=== PATIENT | female | born 1940 | race Caucasian/White ===

== ENCOUNTER 2017-10-09 19:14 | Inpatient (IN) | payer MEDICARE, OTHER ==
--- NOTE | 2017-10-09 20:14 | ED Physician Chart ---
ED Chief Complaint/HPI - Patient Information Date Seen:: 10/09/17 Time Seen:: 20:13 Chief Complaint:: Agitation History of Present Illness:: 77 yo female was brought from [facility] to ER for evaluation of increased agitation. Allergies:: Allergies Allergy/AdvReac Type Severity Reaction Status Date / Time No Known Allergies Allergy Verified 10/09/17 19:54 Vitals:: Vital Signs - 8 hr 10/09/17 19:55 Temp 98.7 F HR 87 RR 18 BP 120/72 O2 Sat % 98 ED Review of Systems - Review of Systems General/Constitutional: No fever Skin: No rash Head: No headache Eyes: No pain ENT: No nasal drainage Neck: No neck pain Cardio Vascular: No chest pain Pulmonary: No SOB GI: No nausea, No vomiting Musculoskeletal: No bone or joint pain Psychiatric: Prior psych history Neurological: No focal symptoms ED Past Medical History - Past Medical History Past Medical History: Arthritis, Dementia (Alzheimer), Other (osteoporosis, PVD , left radius fracture) Social History: Non Smoker, No Alcohol, No Drug Use Psychiatricy History: Other (Anxiety) Family Medical History - Family Member Mother History Unknown: Yes ED Physical Exam - Physical Examination General/Constitutional: Awake Head: Atraumatic Eyes: PERRL Skin: No skin lesions ENMT: Nasal exam nl Neck: No nuchal rigidity Respiratory: No Wheeze/Rhonchi/Rales Cardio Vascular: RRR, No murmur, gallop, rubs, NL S1 S2 GI: No tenderness/rebounding/guarding Extremities: normal strength in all extremities Neuro/Psych: No focal deficits ED Labs/Radiology/EKG Results - Lab Results Results: Laboratory Last Values WBC 8.1 Th/cmm (4.8-10.8) 10/09/17 20:15 RBC 4.46 Mil/cmm (3.80-5.20) 10/09/17 20:15 Hgb 12.7 gm/dL (12-16) 10/09/17 20:15 Hct 37.4 % (41.0-60) L 10/09/17 20:15 MCV 83.8 fl (81-100) 10/09/17 20:15 MCH 28.5 pg (27.0-31.0) 10/09/17 20:15 MCHC Differential 34.0 pg (28.0-36.0) 10/09/17 20:15 RDW 13.5 % (11.5-20.0) 10/09/17 20:15 Plt Count 272 Th/cmm (150-400) 10/09/17 20:15 MPV 6.9 fl 10/09/17 20:15 Neutrophils % 66.4 % (40.0-80.0) 10/09/17 20:15 Lymphocytes % 24.9 % (20.0-50.0) 10/09/17 20:15 Monocytes % 5.8 % (2.0-10.0) 10/09/17 20:15 Eosinophils % 2.7 % (0.0-5.0) 10/09/17 20:15 Basophils % 0.2 % (0.0-2.0) 10/09/17 20:15 Sodium 137 mEq/L (136-145) 10/09/17 20:15 Potassium 3.8 mEq/L (3.5-5.1) 10/09/17 20:15 Chloride 104 mEq/L (98-107) 10/09/17 20:15 Carbon Dioxide 25.7 mEq/L (21.0-31.0) 10/09/17 20:15 Anion Gap 11.1 (7.0-16.0) 10/09/17 20:15 BUN 25 mg/dL (7-25) 10/09/17 20:15 Creatinine 0.8 mg/dL (0.6-1.2) 10/09/17 20:15 Est GFR ( Amer) TNP 10/09/17 20:15 Est GFR (Non-Af Amer) TNP 10/09/17 20:15 BUN/Creatinine Ratio 31.3 10/09/17 20:15 Glucose 139 mg/dL (70-105) H 10/09/17 20:15 Calcium 9.5 mg/dL (8.6-10.3) 10/09/17 20:15 Total Bilirubin 0.1 mg/dL (0.3-1.0) L 10/09/17 20:15 AST 12 U/L (13-39) L 10/09/17 20:15 ALT 14 U/L (7-52) 10/09/17 20:15 Alkaline Phosphatase 63 U/L (34-104) 10/09/17 20:15 Troponin I 0.01 ng/mL (0.01-0.05) 10/09/17 20:15 Total Protein 6.3 gm/dL (6.0-8.3) 10/09/17 20:15 Albumin 3.8 gm/dL (3.7-5.3) 10/09/17 20:15 Globulin 2.5 gm/dL 10/09/17 20:15 Albumin/Globulin Ratio 1.5 (1.0-1.8) 10/09/17 20:15 TSH 1.68 uIU/ml (0.34-5.60) 10/09/17 20:15 - Radiology Results Results: CXR: no acute abnormality - EKG Interpretations EKG Time:: 20:17 Rate & Rhythm: 78 bpm, sinus rhythm [place]: normal p axis Intervals: CO 140 Comments:: nonspecific ST, T wave changes ED Assessment - Assessment General Assessment: Peripheral vascular disease Osteoarthritis Osteoporosis Alzheimer's disease Anxiety Psychosis Assessment/Comments:: CBC, CMP, Trop I, TSH EKG, CXR Admit to geropsych unit ED Septic Shock - . Is Septic Shock (SBP<90, OR Lactate>4 mmol\L) present?: No - <6hrs of presentation: Vital Signs: Vital Signs - 8 hr 10/09/17 19:55 Temp 98.7 F HR 87 RR 18 BP 120/72 O2 Sat % 98 ED Reassessment (Disposition) - Reassessment Reassessment Condition:: Unchanged - Patient Disposition Discharge/Transfer:: [facility] w/in this hosp Admitting Medical Physician:: Bharat Gonzalez Admitting Psych Physician:: Phillip Gaytan
[2017-10-09 20:23] LABS: % BASOPHILS 0.2 % (0.0-2.0); % EOSINOPHILS 2.7 % (0.0-5.0); % LYMPHOCYTES 24.9 % (20.0-50.0); % MONOCYTES 5.8 % (2.0-10.0); % NEUTROPHILS 66.4 % (40.0-80.0); EOSINOPHILE ABSOLUTE 0.2 Th/cmm (0.1-0.4); HEMATOCRIT 37.4 % (41.0-60); HEMOGLOBIN 12.7 gm/dL (12-16); MEAN CELL VOLUME 83.8 fl (81-100); MEAN CORPUSCULAR HEMOGLOBIN 28.5 pg (27.0-31.0); MEAN PLATELET VOLUME 6.9 fl; MONOCYTE ABSOLUTE 0.5 Th/cmm (0.3-1.0); NEUTROPHILE ABSOLUTE 5.4 Th/cmm (1.8-8.0); PLATELET COUNT 272 Th/cmm (150-400); RED BLOOD COUNT 4.46 Mil/cmm (3.80-5.20); RED CELL DISTRIBUTION WIDTH 13.5 % (11.5-20.0); WHITE BLOOD COUNT 8.1 Th/cmm (4.8-10.8)
[2017-10-09 20:57] LABS: ALB/GLOB RATIO 1.5 (1.0-1.8); ALBUMIN 3.8 gm/dL (3.7-5.3); ALKALINE PHOSPHATASE 63 U/L (34-104); ANION GAP 11.1 (7.0-16.0); BILIRUBIN,TOTAL 0.1 mg/dL (0.3-1.0); BUN - UREA NITROGEN 25 mg/dL (7-25); CALCIUM SERUM 9.5 mg/dL (8.6-10.3); CARBON DIOXIDE 25.7 mEq/L (21.0-31.0); CHLORIDE 104 mEq/L (98-107); CREATININE - SERUM 0.8 mg/dL (0.6-1.2); GLUCOSE 139 mg/dL (70-105); POTASSIUM SERUM 3.8 mEq/L (3.5-5.1); SGOT 12 U/L (13-39); SGPT/ALT 14 U/L (7-52); SODIUM SERUM 137 mEq/L (136-145); TOTAL PROTEIN,SERUM 6.3 gm/dL (6.0-8.3)
[2017-10-09] MEDS ORDERED: Maalox 30 mL Cup PO PRN (22:44)
[2017-10-10 02:31] VITALS: BP 120/76
[2017-10-10] MEDS ORDERED: Fleet Enema 135 mL RC PRN (07:45)
[2017-10-10] MEDS ORDERED: Magnesium Hydroxide (MOM) 30 mL UDC PO PRN (07:47)
--- NOTE | 2017-10-10 08:00 | Diagnostic Imaging Report ---
Portable chest x-ray History: Shortness of breath Allowing for portable technique the heart size is normal. Atherosclerotic calcification seen within the aortic arch. No focal pulmonary parenchymal processes. No hilar or mediastinal abnormalities. Impression: No acute abnormalities.
--- NOTE | 2017-10-10 08:45 | History and Physical ---
History of Present Illness - HPI Chief Complaint: Psychosis HPI: 77 yo female presents to [facility] ER for increased agitation noted by the nursing staff at the SNF. The patient was noted to have a change in her behavior and was subsequently sent for evaluation. Patient has a previous history of Arthritis, Dementia (Alzheimer), osteoporosis, PVD, and left radius fracture. Initial Labs WBC 8.1 H/H 12.7/37.4 Plat 272K Na 137 K 3.8 Bun/Cr 25/0.8 glu 139 TSH 1.68 AST 12 ALT 14 Alk 63 Patient was subsequently admitted to [facility] for further evaluation and treatment. Vital Signs: Last Vital Signs Temp 98.3 F 10/09/17 22:45 Pulse 78 10/09/17 22:45 Resp 18 10/09/17 22:45 BP 120/76 10/10/17 02:31 Pulse Ox 97 10/09/17 22:45 Past Medical History Cardiovascular: Report: No Pertinent Hx Pulmonary: Report: No Pertinent Hx [employer] SPECIALIST: Report: Dementia (Alzheimer's) GI: Report: No Pertinent Hx Psych: Report: Anxiety, Psychosis Musculoskeletal: Report: Other (OA) Rheumatologic: Report: No pertinent Hx Infectious Disease: Report: No Pertinent Hx Renal/: Report: No Pertinent Hx Endocrine: Report: No Pertinent Hx Dermatology: Report: No Pertinent Hx Other History: PVD - Past Surgical History Past Surgical History: No pertinent Hx Family Medical History - Family Member Mother History Unknown: Yes Social History Smoke: No Alcohol: None Drugs: None Lives: Skilled Nursing - Medications Home Medications: Home Medication Medication Instructions Recorded Type Acetaminophen [Tylenol] 650 mg PO Q6HR PRN 10/09/17 History Calcium Carbonate/Vitamin D3 1 tab PO BID 10/09/17 History [Calcium 500-Vit D3 200 Caplet] Cholecalciferol (Vit D3) [Vitamin 1,000 iu PO DAILY 10/09/17 History D3] Cyanocobalamin (Vitamin B-12) 1 tab PO DAILY 10/09/17 History [Vitamin B-12] Diphenhydramine HCL [Benadryl] 25 mg PO Q6HR PRN 10/09/17 History Fleet Enema 1 bottle RC Q72HR PRN 10/09/17 History Magnesium Hydroxide [Milk of 30 ml PO Q72HR PRN 10/09/17 History Magnesia] Memantine HCl [Namenda] 5 mg PO BID 10/09/17 History Multivitamin with Minerals 1 tab PO DAILY 10/09/17 History [Multivitamins with Minerals] Sennosides [Senna] 8.6 mg PO DAILY 10/09/17 History - Allergies Allergies/Adverse Reactions: Allergies Allergy/AdvReac Type Severity Reaction Status Date / Time No Known Allergies Allergy Verified 10/09/17 19:54 Review of Systems - Review of Systems Constitutional: Report: No Significant Eyes: Report: No Significant ENT: Report: No Significant Respiratory: Report: No Significant Cardiovascular: Report: No Significant Gastrointestinal: Report: No Significant Genitourinary: Report: No Significant Musculoskeletal: Report: No Significant Skin: Report: No Significant Neurological: Report: No Significant Physical Exam - Physical Exam HEENT: Report: Ears Nose Throat within normal limits, Pharnyx within normal limits Neck: Report: Within normal limits Cardiovascular Systems: Report: +s1/s2 noted, Regular, Rate and Rhythm Respiratory: Report: Breath Sounds are within normal limits, Clear to Auscultation of lung pulido Abdomen: Report: Non-tender to palpation Back: Report: Inspection of back is within normal limits. Extremities: Report: Non-tender to palpation. Skin: Report: Color of skin is within normal limits, Warm Neuro/Psych: Report: Other (Awake, Alert, but confused) - Lab Results All Lab Results last 24 hours: Laboratory Results - last 24 hr 10/09/17 10/09/17 10/09/17 20:15 20:15 20:15 WBC 8.1 RBC 4.46 Hgb 12.7 Hct 37.4 L MCV 83.8 MCH 28.5 MCHC Differential 34.0 RDW 13.5 Plt Count 272 MPV 6.9 Neutrophils % 66.4 Lymphocytes % 24.9 Monocytes % 5.8 Eosinophils % 2.7 Basophils % 0.2 Sodium 137 Potassium 3.8 Chloride 104 Carbon Dioxide 25.7 Anion Gap 11.1 BUN 25 Creatinine 0.8 Est GFR ( Amer) TNP Est GFR (Non-Af Amer) TNP BUN/Creatinine Ratio 31.3 Glucose 139 H Calcium 9.5 Total Bilirubin 0.1 L AST 12 L ALT 14 Alkaline Phosphatase 63 Troponin I Total Protein 6.3 Albumin 3.8 Globulin 2.5 Albumin/Globulin Ratio 1.5 TSH 1.68 10/09/17 20:15 WBC RBC Hgb Hct MCV MCH MCHC Differential RDW Plt Count MPV Neutrophils % Lymphocytes % Monocytes % Eosinophils % Basophils % Sodium Potassium Chloride Carbon Dioxide Anion Gap BUN Creatinine Est GFR ( Amer) Est GFR (Non-Af Amer) BUN/Creatinine Ratio Glucose Calcium Total Bilirubin AST ALT Alkaline Phosphatase Troponin I 0.01 Total Protein Albumin Globulin Albumin/Globulin Ratio TSH - Assessment Assessment: Psychosis Arthritis Dementia (Alzheimer) osteoporosis PVD left radius fracture - Plan Plan: admit to [facility]
[2017-10-10] MEDS: Multivitamin w/ Minerals Tab PO SCH (09:13)
[2017-10-10] MEDS: Calcium Carb/Vit D 500 mg/200 U Tab PO SCH ×2 (09:13→16:39)
--- NOTE | 2017-10-11 00:08 | Psychiatric Evaluation ---
DATE OF SERVICE: 10/10/2017 JUSTIFICATION FOR HOSPITALIZATION: Agitation and aggressive behavior at [facility]. HISTORY OF PRESENT ILLNESS: A 77-year-old female, brought in from [facility], agitated, combative, unable to be cared for at a lower level of care. The patient is AO to name only, mumbling something difficult to understand. Not answering questions about sleep or appetite or mood. She is generally confused, mumbling something. PAST PSYCHIATRIC HISTORY: Dementia. It seems advanced. FAMILY HISTORY: Noncontributory. SOCIAL HISTORY: The patient is coming from [facility]. Family support system is unclear. MEDICATIONS: Noted. MENTAL STATUS EXAMINATION: Stated age. Fair eye contact. Awake, alert, poorly oriented. Mood, not answering. Affect flat. Thought processes were confused. No SI, no HI. No overt psychotic symptoms. No suicidal gestures. Insight and judgment diminished. PROVISIONAL DIAGNOSES: Dementia, dementia with behaviors, psychosis, unspecified. MEDICAL: Please see full H and P. ESTIMATED LENGTH OF STAY: 5-7 days. ASSESSMENT: The patient requiring hospitalization, agitated, combative, unable to be cared for at a lower level of care. PLAN: We will continue to monitor, titrate and adjust medications. Given ongoing symptoms, she is not safe for discharge. [facility]# [id number]
--- NOTE | 2017-10-11 08:21 | General Progress Note ---
Subjective - Review of Systems Service Date: 10/11/17 Subjective: Awake, alert no acute distress VS T 96.8 P 73 BP 121/76 R 20 Objective - Results Result Diagrams: 10/09/17 20:15 10/09/17 20:15 Recent Labs: Laboratory Last Values WBC 8.1 Th/cmm (4.8-10.8) 10/09/17 20:15 RBC 4.46 Mil/cmm (3.80-5.20) 10/09/17 20:15 Hgb 12.7 gm/dL (12-16) 10/09/17 20:15 Hct 37.4 % (41.0-60) L 10/09/17 20:15 MCV 83.8 fl (81-100) 10/09/17 20:15 MCH 28.5 pg (27.0-31.0) 10/09/17 20:15 MCHC Differential 34.0 pg (28.0-36.0) 10/09/17 20:15 RDW 13.5 % (11.5-20.0) 10/09/17 20:15 Plt Count 272 Th/cmm (150-400) 10/09/17 20:15 MPV 6.9 fl 10/09/17 20:15 Neutrophils % 66.4 % (40.0-80.0) 10/09/17 20:15 Lymphocytes % 24.9 % (20.0-50.0) 10/09/17 20:15 Monocytes % 5.8 % (2.0-10.0) 10/09/17 20:15 Eosinophils % 2.7 % (0.0-5.0) 10/09/17 20:15 Basophils % 0.2 % (0.0-2.0) 10/09/17 20:15 Sodium 137 mEq/L (136-145) 10/09/17 20:15 Potassium 3.8 mEq/L (3.5-5.1) 10/09/17 20:15 Chloride 104 mEq/L (98-107) 10/09/17 20:15 Carbon Dioxide 25.7 mEq/L (21.0-31.0) 10/09/17 20:15 Anion Gap 11.1 (7.0-16.0) 10/09/17 20:15 BUN 25 mg/dL (7-25) 10/09/17 20:15 Creatinine 0.8 mg/dL (0.6-1.2) 10/09/17 20:15 Est GFR ( Amer) TNP 10/09/17 20:15 Est GFR (Non-Af Amer) TNP 10/09/17 20:15 BUN/Creatinine Ratio 31.3 10/09/17 20:15 Glucose 139 mg/dL (70-105) H 10/09/17 20:15 Calcium 9.5 mg/dL (8.6-10.3) 10/09/17 20:15 Total Bilirubin 0.1 mg/dL (0.3-1.0) L 10/09/17 20:15 AST 12 U/L (13-39) L 10/09/17 20:15 ALT 14 U/L (7-52) 10/09/17 20:15 Alkaline Phosphatase 63 U/L (34-104) 10/09/17 20:15 Troponin I 0.01 ng/mL (0.01-0.05) 10/09/17 20:15 Total Protein 6.3 gm/dL (6.0-8.3) 10/09/17 20:15 Albumin 3.8 gm/dL (3.7-5.3) 10/09/17 20:15 Globulin 2.5 gm/dL 10/09/17 20:15 Albumin/Globulin Ratio 1.5 (1.0-1.8) 10/09/17 20:15 TSH 1.68 uIU/ml (0.34-5.60) 10/09/17 20:15 - Physical Exam Vitals and I&O: Vital Signs Temp 98.8 F 10/10/17 16:40 Pulse 73 10/10/17 16:40 Resp 20 10/10/17 16:40 BP 121/76 10/10/17 16:40 Pulse Ox 96 10/10/17 16:40 Active Medications: Current Medications Acetaminophen (Tylenol) 650 mg PO Q4HR PRN PRN Reason: Mild Pain / Temp above 100 Stop: 12/08/17 22:43 Al Hydrox/Mg Hydrox/Simethicone (Maalox) 30 ml PO Q4HR PRN PRN Reason: GI DISTRESS Stop: 12/08/17 22:43 Calcium/Vitamin D (Oscal W/Vitamin D) 1 tab PO BID [facility] Stop: 12/09/17 08:59 Last Admin: 10/10/17 16:39 Dose: 1 tab Cholecalciferol (Vitamin D3) 1,000 iu PO DAILY [facility] Stop: 12/09/17 08:59 Last Admin: 10/10/17 09:13 Dose: 1,000 iu Cyanocobalamin (Vitamin B12) 1,000 mcg PO DAILY [facility] Stop: 12/09/17 08:59 Last Admin: 10/10/17 09:13 Dose: 1,000 mcg Diphenhydramine HCl (Benadryl) 25 mg PO Q6HR PRN PRN Reason: Itching Stop: 12/09/17 07:44 Lorazepam (Ativan) 0.5 mg PO Q4HR PRN; Protocol PRN Reason: Anxiety Stop: 11/08/17 22:43 Magnesium Hydroxide (Milk Of Magnesia) 30 ml PO Q72HR PRN PRN Reason: Constipation Stop: 12/09/17 07:46 Memantine (Namenda) 5 mg PO BID [facility] Stop: 12/09/17 08:59 Last Admin: 10/10/17 16:39 Dose: 5 mg Senna (Senna) 8.6 mg PO DAILY [facility] Stop: 12/09/17 08:59 Last Admin: 10/10/17 09:13 Dose: 8.6 mg Sodium Phosphate (Fleet Enema) 135 ml RC Q72HR PRN PRN Reason: IF MOM INEFFECTIVE Stop: 12/09/17 07:44 Zolpidem Tartrate (Ambien) 5 mg PO HS PRN PRN Reason: Insomnia Stop: 12/08/17 22:43 General: Alert, Oriented x3, No acute distress HEENT: Atraumatic, PERRLA, EOMI Neck: Supple Cardiovascular: Regular rate, Normal S1, Normal S2 Lungs: Clear to auscultation Abdomen: Bowel sounds Extremities: no Clubbing, no Cyanosis, no Edema Neurological: Normal gait Assessment/Plan - Assessment Assessment: Psychosis Arthritis Dementia (Alzheimer) osteoporosis PVD h/o left radius fracture - Plan Plan: admit to [facility]
[2017-10-11] MEDS: Calcium Carb/Vit D 500 mg/200 U Tab PO SCH ×2 (08:55→17:07)
[2017-10-11] MEDS: Multivitamin w/ Minerals Tab PO SCH (08:55)
--- NOTE | 2017-10-11 23:21 | Progress Notes ---
DATE: 10/11/2017 SUBJECTIVE: The patient in the hospital, agitated behaviors, aggressive behaviors, coming in from shelter, combative, unable to be cared for at a lower level of care, very confused on exam, AO to name only, does not know where she is or what is going on. It seems that she has advanced dementia. Slept for about 7-8 hours. Amenable to care. She is fairly calm. ASSESSMENT: The patient is confused, disoriented, highly impulsive, unpredictable, currently on Namenda. We will continue Aricept. Given her ongoing symptoms, she is not safe for discharge. Vitals were reviewed. JOB# [id number]
--- NOTE | 2017-10-12 08:09 | General Progress Note ---
Subjective - Review of Systems Service Date: 10/12/17 Subjective: Awake, alert no acute distress VS T 97.6 P 68 BP 109/73 R 18 Objective - Results Result Diagrams: 10/09/17 20:15 10/09/17 20:15 Recent Labs: Laboratory Last Values WBC 8.1 Th/cmm (4.8-10.8) 10/09/17 20:15 RBC 4.46 Mil/cmm (3.80-5.20) 10/09/17 20:15 Hgb 12.7 gm/dL (12-16) 10/09/17 20:15 Hct 37.4 % (41.0-60) L 10/09/17 20:15 MCV 83.8 fl (81-100) 10/09/17 20:15 MCH 28.5 pg (27.0-31.0) 10/09/17 20:15 MCHC Differential 34.0 pg (28.0-36.0) 10/09/17 20:15 RDW 13.5 % (11.5-20.0) 10/09/17 20:15 Plt Count 272 Th/cmm (150-400) 10/09/17 20:15 MPV 6.9 fl 10/09/17 20:15 Neutrophils % 66.4 % (40.0-80.0) 10/09/17 20:15 Lymphocytes % 24.9 % (20.0-50.0) 10/09/17 20:15 Monocytes % 5.8 % (2.0-10.0) 10/09/17 20:15 Eosinophils % 2.7 % (0.0-5.0) 10/09/17 20:15 Basophils % 0.2 % (0.0-2.0) 10/09/17 20:15 Sodium 137 mEq/L (136-145) 10/09/17 20:15 Potassium 3.8 mEq/L (3.5-5.1) 10/09/17 20:15 Chloride 104 mEq/L (98-107) 10/09/17 20:15 Carbon Dioxide 25.7 mEq/L (21.0-31.0) 10/09/17 20:15 Anion Gap 11.1 (7.0-16.0) 10/09/17 20:15 BUN 25 mg/dL (7-25) 10/09/17 20:15 Creatinine 0.8 mg/dL (0.6-1.2) 10/09/17 20:15 Est GFR ( Amer) TNP 10/09/17 20:15 Est GFR (Non-Af Amer) TNP 10/09/17 20:15 BUN/Creatinine Ratio 31.3 10/09/17 20:15 Glucose 139 mg/dL (70-105) H 10/09/17 20:15 Calcium 9.5 mg/dL (8.6-10.3) 10/09/17 20:15 Total Bilirubin 0.1 mg/dL (0.3-1.0) L 10/09/17 20:15 AST 12 U/L (13-39) L 10/09/17 20:15 ALT 14 U/L (7-52) 10/09/17 20:15 Alkaline Phosphatase 63 U/L (34-104) 10/09/17 20:15 Troponin I 0.01 ng/mL (0.01-0.05) 10/09/17 20:15 Total Protein 6.3 gm/dL (6.0-8.3) 10/09/17 20:15 Albumin 3.8 gm/dL (3.7-5.3) 10/09/17 20:15 Globulin 2.5 gm/dL 10/09/17 20:15 Albumin/Globulin Ratio 1.5 (1.0-1.8) 10/09/17 20:15 TSH 1.68 uIU/ml (0.34-5.60) 10/09/17 20:15 RPR NONREACTIVE (NONREACTIVE) 10/09/17 20:15 - Physical Exam Vitals and I&O: Vital Signs Temp 97.6 F 10/12/17 04:18 Pulse 68 10/12/17 04:18 Resp 18 10/12/17 04:18 BP 109/73 10/12/17 04:18 Pulse Ox 97 10/12/17 04:18 Intake & Output 10/11/17 10/12/17 10/12/17 18:59 06:59 18:59 Intake Total 480 Balance 480 Intake: Oral 480 Other: # Voids 4 2 # Bowel Movements 0 Active Medications: Current Medications Acetaminophen (Tylenol) 650 mg PO Q4HR PRN PRN Reason: Mild Pain / Temp above 100 Stop: 12/08/17 22:43 Al Hydrox/Mg Hydrox/Simethicone (Maalox) 30 ml PO Q4HR PRN PRN Reason: GI DISTRESS Stop: 12/08/17 22:43 Calcium/Vitamin D (Oscal W/Vitamin D) 1 tab PO BID [facility] Stop: 12/09/17 08:59 Last Admin: 10/11/17 17:07 Dose: 1 tab Cholecalciferol (Vitamin D3) 1,000 iu PO DAILY [facility] Stop: 12/09/17 08:59 Last Admin: 10/11/17 08:55 Dose: 1,000 iu Cyanocobalamin (Vitamin B12) 1,000 mcg PO DAILY [facility] Stop: 12/09/17 08:59 Last Admin: 10/11/17 08:55 Dose: 1,000 mcg Diphenhydramine HCl (Benadryl) 25 mg PO Q6HR PRN PRN Reason: Itching Stop: 12/09/17 07:44 Lorazepam (Ativan) 0.5 mg PO Q4HR PRN; Protocol PRN Reason: Anxiety Stop: 11/08/17 22:43 Magnesium Hydroxide (Milk Of Magnesia) 30 ml PO Q72HR PRN PRN Reason: Constipation Stop: 12/09/17 07:46 Memantine (Namenda) 5 mg PO BID [facility] Stop: 12/09/17 08:59 Last Admin: 10/11/17 17:07 Dose: 5 mg Senna (Senna) 8.6 mg PO DAILY [facility] Stop: 12/09/17 08:59 Last Admin: 10/11/17 08:55 Dose: 8.6 mg Sodium Phosphate (Fleet Enema) 135 ml RC Q72HR PRN PRN Reason: IF MOM INEFFECTIVE Stop: 12/09/17 07:44 Zolpidem Tartrate (Ambien) 5 mg PO HS PRN PRN Reason: Insomnia Stop: 12/08/17 22:43 General: Alert, Oriented x3, No acute distress HEENT: Atraumatic, PERRLA, EOMI Neck: Supple Cardiovascular: Regular rate, Normal S1, Normal S2 Lungs: Clear to auscultation Abdomen: Bowel sounds Extremities: no Clubbing, no Cyanosis, no Edema Neurological: Normal gait Assessment/Plan - Assessment Assessment: Psychosis Arthritis Dementia (Alzheimer) osteoporosis PVD h/o left radius fracture - Plan Plan: admit to [facility]
[2017-10-12] MEDS: Calcium Carb/Vit D 500 mg/200 U Tab PO SCH ×2 (09:11→17:09)
[2017-10-12] MEDS: Multivitamin w/ Minerals Tab PO SCH (09:11)
--- NOTE | 2017-10-12 22:46 | Progress Notes ---
DATE: 10/12/2017 SUBJECTIVE: The patient is confused, disoriented, slept fairly well last night, in her room, withdrawn, mumbling, talking to herself, AO to name only, does not know where she is or what is going on, very forgetful. No agitation, no escalation of behaviors, but given her symptoms, she remains highly impulsive also unpredictable. The patient with episodes of striking out at staff and that is why she is here. Medications were noted. ASSESSMENT: The patient remains symptomatic, impulsive, unpredictable. PLAN: We will continue to monitor. Consider the addition of Aricept. JOB# [id number]
--- NOTE | 2017-10-13 05:35 | General Progress Note ---
Subjective - Review of Systems Service Date: 10/13/17 Subjective: Awake, alert no acute distress VS T 97.6 P 72 BP 108/69 R 18 Objective - Results Result Diagrams: 10/09/17 20:15 10/09/17 20:15 Recent Labs: Laboratory Last Values WBC 8.1 Th/cmm (4.8-10.8) 10/09/17 20:15 RBC 4.46 Mil/cmm (3.80-5.20) 10/09/17 20:15 Hgb 12.7 gm/dL (12-16) 10/09/17 20:15 Hct 37.4 % (41.0-60) L 10/09/17 20:15 MCV 83.8 fl (81-100) 10/09/17 20:15 MCH 28.5 pg (27.0-31.0) 10/09/17 20:15 MCHC Differential 34.0 pg (28.0-36.0) 10/09/17 20:15 RDW 13.5 % (11.5-20.0) 10/09/17 20:15 Plt Count 272 Th/cmm (150-400) 10/09/17 20:15 MPV 6.9 fl 10/09/17 20:15 Neutrophils % 66.4 % (40.0-80.0) 10/09/17 20:15 Lymphocytes % 24.9 % (20.0-50.0) 10/09/17 20:15 Monocytes % 5.8 % (2.0-10.0) 10/09/17 20:15 Eosinophils % 2.7 % (0.0-5.0) 10/09/17 20:15 Basophils % 0.2 % (0.0-2.0) 10/09/17 20:15 Sodium 137 mEq/L (136-145) 10/09/17 20:15 Potassium 3.8 mEq/L (3.5-5.1) 10/09/17 20:15 Chloride 104 mEq/L (98-107) 10/09/17 20:15 Carbon Dioxide 25.7 mEq/L (21.0-31.0) 10/09/17 20:15 Anion Gap 11.1 (7.0-16.0) 10/09/17 20:15 BUN 25 mg/dL (7-25) 10/09/17 20:15 Creatinine 0.8 mg/dL (0.6-1.2) 10/09/17 20:15 Est GFR ( Amer) TNP 10/09/17 20:15 Est GFR (Non-Af Amer) TNP 10/09/17 20:15 BUN/Creatinine Ratio 31.3 10/09/17 20:15 Glucose 139 mg/dL (70-105) H 10/09/17 20:15 Calcium 9.5 mg/dL (8.6-10.3) 10/09/17 20:15 Total Bilirubin 0.1 mg/dL (0.3-1.0) L 10/09/17 20:15 AST 12 U/L (13-39) L 10/09/17 20:15 ALT 14 U/L (7-52) 10/09/17 20:15 Alkaline Phosphatase 63 U/L (34-104) 10/09/17 20:15 Troponin I 0.01 ng/mL (0.01-0.05) 10/09/17 20:15 Total Protein 6.3 gm/dL (6.0-8.3) 10/09/17 20:15 Albumin 3.8 gm/dL (3.7-5.3) 10/09/17 20:15 Globulin 2.5 gm/dL 10/09/17 20:15 Albumin/Globulin Ratio 1.5 (1.0-1.8) 10/09/17 20:15 TSH 1.68 uIU/ml (0.34-5.60) 10/09/17 20:15 RPR NONREACTIVE (NONREACTIVE) 10/09/17 20:15 - Physical Exam Vitals and I&O: Vital Signs Temp 97.6 F 10/13/17 04:19 Pulse 72 10/13/17 04:19 Resp 18 10/13/17 04:19 BP 108/69 10/13/17 04:19 Pulse Ox 93 10/13/17 04:19 Intake & Output 10/12/17 10/12/17 10/13/17 06:59 18:59 06:59 Intake Total 480 480 Balance 480 480 Intake: Oral 480 480 Other: # Voids 2 2 Active Medications: Current Medications Acetaminophen (Tylenol) 650 mg PO Q4HR PRN PRN Reason: Mild Pain / Temp above 100 Stop: 12/08/17 22:43 Al Hydrox/Mg Hydrox/Simethicone (Maalox) 30 ml PO Q4HR PRN PRN Reason: GI DISTRESS Stop: 12/08/17 22:43 Calcium/Vitamin D (Oscal W/Vitamin D) 1 tab PO BID [facility] Stop: 12/09/17 08:59 Last Admin: 10/12/17 17:09 Dose: 1 tab Cholecalciferol (Vitamin D3) 1,000 iu PO DAILY [facility] Stop: 12/09/17 08:59 Last Admin: 10/12/17 09:10 Dose: 1,000 iu Cyanocobalamin (Vitamin B12) 1,000 mcg PO DAILY [facility] Stop: 12/09/17 08:59 Last Admin: 10/12/17 09:10 Dose: 1,000 mcg Diphenhydramine HCl (Benadryl) 25 mg PO Q6HR PRN PRN Reason: Itching Stop: 12/09/17 07:44 Lorazepam (Ativan) 0.5 mg PO Q4HR PRN; Protocol PRN Reason: Anxiety Stop: 11/08/17 22:43 Magnesium Hydroxide (Milk Of Magnesia) 30 ml PO Q72HR PRN PRN Reason: Constipation Stop: 12/09/17 07:46 Memantine (Namenda) 5 mg PO BID [facility] Stop: 12/09/17 08:59 Last Admin: 10/12/17 17:09 Dose: 5 mg Senna (Senna) 8.6 mg PO DAILY [facility] Stop: 12/09/17 08:59 Last Admin: 10/12/17 09:10 Dose: 8.6 mg Sodium Phosphate (Fleet Enema) 135 ml RC Q72HR PRN PRN Reason: IF MOM INEFFECTIVE Stop: 12/09/17 07:44 Zolpidem Tartrate (Ambien) 5 mg PO HS PRN PRN Reason: Insomnia Stop: 12/08/17 22:43 General: Alert, Oriented x3, No acute distress HEENT: Atraumatic, PERRLA, EOMI Neck: Supple Cardiovascular: Regular rate, Normal S1, Normal S2 Lungs: Clear to auscultation Abdomen: Bowel sounds Extremities: no Clubbing, no Cyanosis, no Edema Neurological: Normal gait Assessment/Plan - Assessment Assessment: Psychosis Arthritis Dementia (Alzheimer) osteoporosis PVD h/o left radius fracture - Plan Plan: admit to [facility]
[2017-10-13] MEDS: Calcium Carb/Vit D 500 mg/200 U Tab PO SCH ×2 (08:52→16:21)
[2017-10-13] MEDS: Multivitamin w/ Minerals Tab PO SCH (08:53)
--- NOTE | 2017-10-13 19:15 | Progress Notes ---
DATE: 10/13/2017 SUBJECTIVE: The patient in the hospital, confused, disoriented, poorly confused, very forgetful, refusing to speak with me this morning, episodes of striking out at staff, ongoing behavioral disturbances, ongoing concerns about her behaviors, confused, forgetful, poorly oriented per staff, slept fairly well. ASSESSMENT: The patient remains agitated, easily irritable, easily distracted, refusing to speak with me. Needing high level of nursing care, still unruly. We will continue to monitor ongoing symptoms indicative of possible psychosis, mumbling to self. We will continue to monitor follow up. [facility]# [id number]
--- NOTE | 2017-10-14 04:51 | General Progress Note ---
Subjective - Review of Systems Service Date: 10/14/17 Subjective: Awake, alert no acute distress VS T 98.4 P 77 BP 95/59 R 18 Objective - Results Result Diagrams: 10/09/17 20:15 10/09/17 20:15 Recent Labs: Laboratory Last Values WBC 8.1 Th/cmm (4.8-10.8) 10/09/17 20:15 RBC 4.46 Mil/cmm (3.80-5.20) 10/09/17 20:15 Hgb 12.7 gm/dL (12-16) 10/09/17 20:15 Hct 37.4 % (41.0-60) L 10/09/17 20:15 MCV 83.8 fl (81-100) 10/09/17 20:15 MCH 28.5 pg (27.0-31.0) 10/09/17 20:15 MCHC Differential 34.0 pg (28.0-36.0) 10/09/17 20:15 RDW 13.5 % (11.5-20.0) 10/09/17 20:15 Plt Count 272 Th/cmm (150-400) 10/09/17 20:15 MPV 6.9 fl 10/09/17 20:15 Neutrophils % 66.4 % (40.0-80.0) 10/09/17 20:15 Lymphocytes % 24.9 % (20.0-50.0) 10/09/17 20:15 Monocytes % 5.8 % (2.0-10.0) 10/09/17 20:15 Eosinophils % 2.7 % (0.0-5.0) 10/09/17 20:15 Basophils % 0.2 % (0.0-2.0) 10/09/17 20:15 Sodium 137 mEq/L (136-145) 10/09/17 20:15 Potassium 3.8 mEq/L (3.5-5.1) 10/09/17 20:15 Chloride 104 mEq/L (98-107) 10/09/17 20:15 Carbon Dioxide 25.7 mEq/L (21.0-31.0) 10/09/17 20:15 Anion Gap 11.1 (7.0-16.0) 10/09/17 20:15 BUN 25 mg/dL (7-25) 10/09/17 20:15 Creatinine 0.8 mg/dL (0.6-1.2) 10/09/17 20:15 Est GFR ( Amer) TNP 10/09/17 20:15 Est GFR (Non-Af Amer) TNP 10/09/17 20:15 BUN/Creatinine Ratio 31.3 10/09/17 20:15 Glucose 139 mg/dL (70-105) H 10/09/17 20:15 Calcium 9.5 mg/dL (8.6-10.3) 10/09/17 20:15 Total Bilirubin 0.1 mg/dL (0.3-1.0) L 10/09/17 20:15 AST 12 U/L (13-39) L 10/09/17 20:15 ALT 14 U/L (7-52) 10/09/17 20:15 Alkaline Phosphatase 63 U/L (34-104) 10/09/17 20:15 Troponin I 0.01 ng/mL (0.01-0.05) 10/09/17 20:15 Total Protein 6.3 gm/dL (6.0-8.3) 10/09/17 20:15 Albumin 3.8 gm/dL (3.7-5.3) 10/09/17 20:15 Globulin 2.5 gm/dL 10/09/17 20:15 Albumin/Globulin Ratio 1.5 (1.0-1.8) 10/09/17 20:15 TSH 1.68 uIU/ml (0.34-5.60) 10/09/17 20:15 RPR NONREACTIVE (NONREACTIVE) 10/09/17 20:15 - Physical Exam Vitals and I&O: Vital Signs Temp 98.4 F 10/13/17 21:20 Pulse 77 10/13/17 21:20 Resp 18 10/13/17 21:20 BP 95/59 10/13/17 21:20 Pulse Ox 95 10/13/17 21:20 Intake & Output 10/13/17 10/13/17 10/14/17 06:59 18:59 06:59 Intake Total 480 500 Balance 480 500 Intake: Oral 480 500 Other: # Voids 2 4 # Bowel Movements 0 Active Medications: Current Medications Acetaminophen (Tylenol) 650 mg PO Q4HR PRN PRN Reason: Mild Pain / Temp above 100 Stop: 12/08/17 22:43 Al Hydrox/Mg Hydrox/Simethicone (Maalox) 30 ml PO Q4HR PRN PRN Reason: GI DISTRESS Stop: 12/08/17 22:43 Calcium/Vitamin D (Oscal W/Vitamin D) 1 tab PO BID [facility] Stop: 12/09/17 08:59 Last Admin: 10/13/17 16:21 Dose: 1 tab Cholecalciferol (Vitamin D3) 1,000 iu PO DAILY [facility] Stop: 12/09/17 08:59 Last Admin: 10/13/17 08:53 Dose: 1,000 iu Cyanocobalamin (Vitamin B12) 1,000 mcg PO DAILY [facility] Stop: 12/09/17 08:59 Last Admin: 10/13/17 08:52 Dose: 1,000 mcg Diphenhydramine HCl (Benadryl) 25 mg PO Q6HR PRN PRN Reason: Itching Stop: 12/09/17 07:44 Lorazepam (Ativan) 0.5 mg PO Q4HR PRN; Protocol PRN Reason: Anxiety Stop: 11/08/17 22:43 Magnesium Hydroxide (Milk Of Magnesia) 30 ml PO Q72HR PRN PRN Reason: Constipation Stop: 12/09/17 07:46 Memantine (Namenda) 5 mg PO BID [facility] Stop: 12/09/17 08:59 Last Admin: 10/13/17 16:21 Dose: 5 mg Senna (Senna) 8.6 mg PO DAILY [facility] Stop: 12/09/17 08:59 Last Admin: 10/13/17 08:52 Dose: 8.6 mg Sodium Phosphate (Fleet Enema) 135 ml RC Q72HR PRN PRN Reason: IF MOM INEFFECTIVE Stop: 12/09/17 07:44 Zolpidem Tartrate (Ambien) 5 mg PO HS PRN PRN Reason: Insomnia Stop: 12/08/17 22:43 General: Alert, Oriented x3, No acute distress HEENT: Atraumatic, PERRLA, EOMI Neck: Supple Cardiovascular: Regular rate, Normal S1, Normal S2 Lungs: Clear to auscultation Abdomen: Bowel sounds Extremities: no Clubbing, no Cyanosis, no Edema Neurological: Normal gait Assessment/Plan - Assessment Assessment: Psychosis Arthritis Dementia (Alzheimer) osteoporosis PVD h/o left radius fracture - Plan Plan: admit to [facility]
[2017-10-14] MEDS: Calcium Carb/Vit D 500 mg/200 U Tab PO SCH ×2 (08:49→17:45)
[2017-10-14] MEDS: Multivitamin w/ Minerals Tab PO SCH (08:50)
--- NOTE | 2017-10-14 19:52 | Progress Notes ---
DATE: 10/14/2017 SUBJECTIVE: The patient seen, chart reviewed, discussed with staff. The patient is currently in the hospital, remains highly confused, disoriented, still remains impulsive, unpredictable, sometimes resistant to care, slept fairly well with press loader awakenings requiring high levels of prompting, redirection. Medications were noted. ASSESSMENT: The patient is confused, essentially refusing to speak with me, limited historian, poor orientation, forgetfulness, concerns about impulsivity, lashing out behaviors. PLAN: We will continue to monitor, continue to monitor for any behavioral changes. We will continue to adjust and titrate medications. [facility]# [id number]
--- NOTE | 2017-10-15 05:13 | General Progress Note ---
Subjective - Review of Systems Service Date: 10/15/17 Subjective: Awake, alert no acute distress VS T 97.6 P 73 BP 116/66 R 18 Objective - Results Result Diagrams: 10/09/17 20:15 10/09/17 20:15 Recent Labs: Laboratory Last Values WBC 8.1 Th/cmm (4.8-10.8) 10/09/17 20:15 RBC 4.46 Mil/cmm (3.80-5.20) 10/09/17 20:15 Hgb 12.7 gm/dL (12-16) 10/09/17 20:15 Hct 37.4 % (41.0-60) L 10/09/17 20:15 MCV 83.8 fl (81-100) 10/09/17 20:15 MCH 28.5 pg (27.0-31.0) 10/09/17 20:15 MCHC Differential 34.0 pg (28.0-36.0) 10/09/17 20:15 RDW 13.5 % (11.5-20.0) 10/09/17 20:15 Plt Count 272 Th/cmm (150-400) 10/09/17 20:15 MPV 6.9 fl 10/09/17 20:15 Neutrophils % 66.4 % (40.0-80.0) 10/09/17 20:15 Lymphocytes % 24.9 % (20.0-50.0) 10/09/17 20:15 Monocytes % 5.8 % (2.0-10.0) 10/09/17 20:15 Eosinophils % 2.7 % (0.0-5.0) 10/09/17 20:15 Basophils % 0.2 % (0.0-2.0) 10/09/17 20:15 Sodium 137 mEq/L (136-145) 10/09/17 20:15 Potassium 3.8 mEq/L (3.5-5.1) 10/09/17 20:15 Chloride 104 mEq/L (98-107) 10/09/17 20:15 Carbon Dioxide 25.7 mEq/L (21.0-31.0) 10/09/17 20:15 Anion Gap 11.1 (7.0-16.0) 10/09/17 20:15 BUN 25 mg/dL (7-25) 10/09/17 20:15 Creatinine 0.8 mg/dL (0.6-1.2) 10/09/17 20:15 Est GFR ( Amer) TNP 10/09/17 20:15 Est GFR (Non-Af Amer) TNP 10/09/17 20:15 BUN/Creatinine Ratio 31.3 10/09/17 20:15 Glucose 139 mg/dL (70-105) H 10/09/17 20:15 Calcium 9.5 mg/dL (8.6-10.3) 10/09/17 20:15 Total Bilirubin 0.1 mg/dL (0.3-1.0) L 10/09/17 20:15 AST 12 U/L (13-39) L 10/09/17 20:15 ALT 14 U/L (7-52) 10/09/17 20:15 Alkaline Phosphatase 63 U/L (34-104) 10/09/17 20:15 Troponin I 0.01 ng/mL (0.01-0.05) 10/09/17 20:15 Total Protein 6.3 gm/dL (6.0-8.3) 10/09/17 20:15 Albumin 3.8 gm/dL (3.7-5.3) 10/09/17 20:15 Globulin 2.5 gm/dL 10/09/17 20:15 Albumin/Globulin Ratio 1.5 (1.0-1.8) 10/09/17 20:15 TSH 1.68 uIU/ml (0.34-5.60) 10/09/17 20:15 RPR NONREACTIVE (NONREACTIVE) 10/09/17 20:15 - Physical Exam Vitals and I&O: Vital Signs Temp 97.6 F 10/14/17 20:02 Pulse 73 10/14/17 20:02 Resp 18 10/14/17 20:02 BP 116/66 10/14/17 20:02 Pulse Ox 94 10/14/17 20:02 Intake & Output 10/14/17 10/14/17 10/15/17 06:59 18:59 06:59 Intake Total 500 1400 Balance 500 1400 Intake: Oral 500 1400 Other: # Voids 4 3 # Bowel Movements 0 1 Active Medications: Current Medications Acetaminophen (Tylenol) 650 mg PO Q4HR PRN PRN Reason: Mild Pain / Temp above 100 Stop: 12/08/17 22:43 Al Hydrox/Mg Hydrox/Simethicone (Maalox) 30 ml PO Q4HR PRN PRN Reason: GI DISTRESS Stop: 12/08/17 22:43 Calcium/Vitamin D (Oscal W/Vitamin D) 1 tab PO BID [facility] Stop: 12/09/17 08:59 Last Admin: 10/14/17 17:45 Dose: 1 tab Cholecalciferol (Vitamin D3) 1,000 iu PO DAILY [facility] Stop: 12/09/17 08:59 Last Admin: 10/14/17 08:50 Dose: 1,000 iu Cyanocobalamin (Vitamin B12) 1,000 mcg PO DAILY [facility] Stop: 12/09/17 08:59 Last Admin: 10/14/17 08:50 Dose: 1,000 mcg Diphenhydramine HCl (Benadryl) 25 mg PO Q6HR PRN PRN Reason: Itching Stop: 12/09/17 07:44 Lorazepam (Ativan) 0.5 mg PO Q4HR PRN; Protocol PRN Reason: Anxiety Stop: 11/08/17 22:43 Magnesium Hydroxide (Milk Of Magnesia) 30 ml PO Q72HR PRN PRN Reason: Constipation Stop: 12/09/17 07:46 Memantine (Namenda) 5 mg PO BID [facility] Stop: 12/09/17 08:59 Last Admin: 10/14/17 17:45 Dose: 5 mg Senna (Senna) 8.6 mg PO DAILY [facility] Stop: 12/09/17 08:59 Last Admin: 10/14/17 08:50 Dose: 8.6 mg Sodium Phosphate (Fleet Enema) 135 ml RC Q72HR PRN PRN Reason: IF MOM INEFFECTIVE Stop: 12/09/17 07:44 Zolpidem Tartrate (Ambien) 5 mg PO HS PRN PRN Reason: Insomnia Stop: 12/08/17 22:43 Last Admin: 10/15/17 01:38 Dose: 5 mg General: Alert, Oriented x3, No acute distress HEENT: Atraumatic, PERRLA, EOMI Neck: Supple Cardiovascular: Regular rate, Normal S1, Normal S2 Lungs: Clear to auscultation Abdomen: Bowel sounds Extremities: no Clubbing, no Cyanosis, no Edema Neurological: Normal gait Assessment/Plan - Assessment Assessment: Psychosis Arthritis Dementia (Alzheimer) osteoporosis PVD h/o left radius fracture - [facility]
[2017-10-15] MEDS: Calcium Carb/Vit D 500 mg/200 U Tab PO SCH ×2 (09:49→17:09)
[2017-10-15] MEDS: Multivitamin w/ Minerals Tab PO SCH (09:49)
--- NOTE | 2017-10-15 18:01 | Progress Notes ---
DATE: 10/15/2017 SUBJECTIVE: The patient is currently in the hospital and noted to be confused on exam. Not answering any questions, whatsoever, selectively mute. She seems arousable by name, but for any further questions she just stares blankly. Remains impulsive, unpredictable, no distress noted, confused, forgetful, resistant to care, at times requiring a higher level of nursing care. Concerns about medication compliance, concerns about impulsivity given that she was agitated when she first got to the hospital. Medications were noted. The patient slept fairly well, eating with prompting. ASSESSMENT: The patient remains symptomatic, ongoing concerns about her impulsivity, currently on Namenda. PLAN: We will continue to monitor. Consider addition of Aricept. JOB# [id number]
--- NOTE | 2017-10-16 08:25 | General Progress Note ---
Subjective - Review of Systems Service Date: 10/16/17 Subjective: Awake, alert no acute distress VS T 97.8 P 67 BP 125/70 R 19 Objective - Results Result Diagrams: 10/09/17 20:15 10/09/17 20:15 Recent Labs: Laboratory Last Values WBC 8.1 Th/cmm (4.8-10.8) 10/09/17 20:15 RBC 4.46 Mil/cmm (3.80-5.20) 10/09/17 20:15 Hgb 12.7 gm/dL (12-16) 10/09/17 20:15 Hct 37.4 % (41.0-60) L 10/09/17 20:15 MCV 83.8 fl (81-100) 10/09/17 20:15 MCH 28.5 pg (27.0-31.0) 10/09/17 20:15 MCHC Differential 34.0 pg (28.0-36.0) 10/09/17 20:15 RDW 13.5 % (11.5-20.0) 10/09/17 20:15 Plt Count 272 Th/cmm (150-400) 10/09/17 20:15 MPV 6.9 fl 10/09/17 20:15 Neutrophils % 66.4 % (40.0-80.0) 10/09/17 20:15 Lymphocytes % 24.9 % (20.0-50.0) 10/09/17 20:15 Monocytes % 5.8 % (2.0-10.0) 10/09/17 20:15 Eosinophils % 2.7 % (0.0-5.0) 10/09/17 20:15 Basophils % 0.2 % (0.0-2.0) 10/09/17 20:15 Sodium 137 mEq/L (136-145) 10/09/17 20:15 Potassium 3.8 mEq/L (3.5-5.1) 10/09/17 20:15 Chloride 104 mEq/L (98-107) 10/09/17 20:15 Carbon Dioxide 25.7 mEq/L (21.0-31.0) 10/09/17 20:15 Anion Gap 11.1 (7.0-16.0) 10/09/17 20:15 BUN 25 mg/dL (7-25) 10/09/17 20:15 Creatinine 0.8 mg/dL (0.6-1.2) 10/09/17 20:15 Est GFR ( Amer) TNP 10/09/17 20:15 Est GFR (Non-Af Amer) TNP 10/09/17 20:15 BUN/Creatinine Ratio 31.3 10/09/17 20:15 Glucose 139 mg/dL (70-105) H 10/09/17 20:15 Calcium 9.5 mg/dL (8.6-10.3) 10/09/17 20:15 Total Bilirubin 0.1 mg/dL (0.3-1.0) L 10/09/17 20:15 AST 12 U/L (13-39) L 10/09/17 20:15 ALT 14 U/L (7-52) 10/09/17 20:15 Alkaline Phosphatase 63 U/L (34-104) 10/09/17 20:15 Troponin I 0.01 ng/mL (0.01-0.05) 10/09/17 20:15 Total Protein 6.3 gm/dL (6.0-8.3) 10/09/17 20:15 Albumin 3.8 gm/dL (3.7-5.3) 10/09/17 20:15 Globulin 2.5 gm/dL 10/09/17 20:15 Albumin/Globulin Ratio 1.5 (1.0-1.8) 10/09/17 20:15 TSH 1.68 uIU/ml (0.34-5.60) 10/09/17 20:15 RPR NONREACTIVE (NONREACTIVE) 10/09/17 20:15 - Physical Exam Vitals and I&O: Vital Signs Temp 97.8 F 10/16/17 04:59 Pulse 67 10/16/17 04:59 Resp 19 10/16/17 04:59 BP 125/70 10/16/17 04:59 Pulse Ox 99 10/16/17 04:59 Intake & Output 10/15/17 10/16/17 10/16/17 18:59 06:59 18:59 Intake Total 120 Balance 120 Intake: Oral 120 Other: # Voids 3 # Bowel Movements 0 Active Medications: Current Medications Acetaminophen (Tylenol) 650 mg PO Q4HR PRN PRN Reason: Mild Pain / Temp above 100 Stop: 12/08/17 22:43 Al Hydrox/Mg Hydrox/Simethicone (Maalox) 30 ml PO Q4HR PRN PRN Reason: GI DISTRESS Stop: 12/08/17 22:43 Calcium/Vitamin D (Oscal W/Vitamin D) 1 tab PO BID [facility] Stop: 12/09/17 08:59 Last Admin: 10/15/17 17:09 Dose: 1 tab Cholecalciferol (Vitamin D3) 1,000 iu PO DAILY [facility] Stop: 12/09/17 08:59 Last Admin: 10/15/17 09:49 Dose: 1,000 iu Cyanocobalamin (Vitamin B12) 1,000 mcg PO DAILY [facility] Stop: 12/09/17 08:59 Last Admin: 10/15/17 09:49 Dose: 1,000 mcg Diphenhydramine HCl (Benadryl) 25 mg PO Q6HR PRN PRN Reason: Itching Stop: 12/09/17 07:44 Lorazepam (Ativan) 0.5 mg PO Q4HR PRN; Protocol PRN Reason: Anxiety Stop: 11/08/17 22:43 Magnesium Hydroxide (Milk Of Magnesia) 30 ml PO Q72HR PRN PRN Reason: Constipation Stop: 12/09/17 07:46 Memantine (Namenda) 5 mg PO BID [facility] Stop: 12/09/17 08:59 Last Admin: 10/15/17 17:09 Dose: 5 mg Senna (Senna) 8.6 mg PO DAILY [facility] Stop: 12/09/17 08:59 Last Admin: 10/15/17 09:49 Dose: 8.6 mg Sodium Phosphate (Fleet Enema) 135 ml RC Q72HR PRN PRN Reason: IF MOM INEFFECTIVE Stop: 12/09/17 07:44 Zolpidem Tartrate (Ambien) 5 mg PO HS PRN PRN Reason: Insomnia Stop: 12/08/17 22:43 Last Admin: 10/15/17 01:38 Dose: 5 mg General: Alert, Oriented x3, No acute distress HEENT: Atraumatic, PERRLA, EOMI Neck: Supple Cardiovascular: Regular rate, Normal S1, Normal S2 Lungs: Clear to auscultation Abdomen: Bowel sounds Extremities: no Clubbing, no Cyanosis, no Edema Neurological: Normal gait Assessment/Plan - Assessment Assessment: Psychosis Arthritis Dementia (Alzheimer) osteoporosis PVD h/o left radius fracture - Plan [facility]
[2017-10-16] MEDS: Calcium Carb/Vit D 500 mg/200 U Tab PO SCH ×2 (09:45→17:26)
[2017-10-16] MEDS: Multivitamin w/ Minerals Tab PO SCH (09:45)
--- NOTE | 2017-10-16 16:55 | Progress Notes ---
DATE: 10/16/2017 SUBJECTIVE: The patient is currently in the hospital, confused, disoriented, response to her name only, does not know where she is, at times aggressive, making a humming sound, confused, very restless at times, sleeping fairly well with doll repairer awakening, mostly keeps to herself, not making any sense on exam and advanced dementia noted. ASSESSMENT: The patient remains symptomatic, at times combative, aggressive, very withdrawn, concerns for an underlying mood disorder. PLAN: We will continue to monitor. We will initiate Lexapro. Given her ongoing symptoms, she remains aggressive, not safe for a lower level of care. JOB# [id number]
--- NOTE | 2017-10-17 08:29 | General Progress Note ---
Subjective - Review of Systems Service Date: 10/17/17 Subjective: Awake, alert no acute distress VS T 96.6 P 74 BP 125/70 R 18 Objective - Results Result Diagrams: 10/09/17 20:15 10/09/17 20:15 Recent Labs: Laboratory Last Values WBC 8.1 Th/cmm (4.8-10.8) 10/09/17 20:15 RBC 4.46 Mil/cmm (3.80-5.20) 10/09/17 20:15 Hgb 12.7 gm/dL (12-16) 10/09/17 20:15 Hct 37.4 % (41.0-60) L 10/09/17 20:15 MCV 83.8 fl (81-100) 10/09/17 20:15 MCH 28.5 pg (27.0-31.0) 10/09/17 20:15 MCHC Differential 34.0 pg (28.0-36.0) 10/09/17 20:15 RDW 13.5 % (11.5-20.0) 10/09/17 20:15 Plt Count 272 Th/cmm (150-400) 10/09/17 20:15 MPV 6.9 fl 10/09/17 20:15 Neutrophils % 66.4 % (40.0-80.0) 10/09/17 20:15 Lymphocytes % 24.9 % (20.0-50.0) 10/09/17 20:15 Monocytes % 5.8 % (2.0-10.0) 10/09/17 20:15 Eosinophils % 2.7 % (0.0-5.0) 10/09/17 20:15 Basophils % 0.2 % (0.0-2.0) 10/09/17 20:15 Sodium 137 mEq/L (136-145) 10/09/17 20:15 Potassium 3.8 mEq/L (3.5-5.1) 10/09/17 20:15 Chloride 104 mEq/L (98-107) 10/09/17 20:15 Carbon Dioxide 25.7 mEq/L (21.0-31.0) 10/09/17 20:15 Anion Gap 11.1 (7.0-16.0) 10/09/17 20:15 BUN 25 mg/dL (7-25) 10/09/17 20:15 Creatinine 0.8 mg/dL (0.6-1.2) 10/09/17 20:15 Est GFR ( Amer) TNP 10/09/17 20:15 Est GFR (Non-Af Amer) TNP 10/09/17 20:15 BUN/Creatinine Ratio 31.3 10/09/17 20:15 Glucose 139 mg/dL (70-105) H 10/09/17 20:15 Calcium 9.5 mg/dL (8.6-10.3) 10/09/17 20:15 Total Bilirubin 0.1 mg/dL (0.3-1.0) L 10/09/17 20:15 AST 12 U/L (13-39) L 10/09/17 20:15 ALT 14 U/L (7-52) 10/09/17 20:15 Alkaline Phosphatase 63 U/L (34-104) 10/09/17 20:15 Troponin I 0.01 ng/mL (0.01-0.05) 10/09/17 20:15 Total Protein 6.3 gm/dL (6.0-8.3) 10/09/17 20:15 Albumin 3.8 gm/dL (3.7-5.3) 10/09/17 20:15 Globulin 2.5 gm/dL 10/09/17 20:15 Albumin/Globulin Ratio 1.5 (1.0-1.8) 10/09/17 20:15 TSH 1.68 uIU/ml (0.34-5.60) 10/09/17 20:15 RPR NONREACTIVE (NONREACTIVE) 10/09/17 20:15 - Physical Exam Vitals and I&O: Vital Signs Temp 96.6 F 10/17/17 06:01 Pulse 74 10/17/17 06:01 Resp 18 10/17/17 06:01 BP 115/66 10/16/17 20:04 Pulse Ox 90 10/17/17 06:01 Intake & Output 10/16/17 10/17/17 10/17/17 18:59 06:59 18:59 Intake Total 1800 180 Balance 1800 180 Intake: Oral 1800 180 Other: # Voids 4 1 # Bowel Movements 0 0 Active Medications: Current Medications Acetaminophen (Tylenol) 650 mg PO Q4HR PRN PRN Reason: Mild Pain / Temp above 100 Stop: 12/08/17 22:43 Al Hydrox/Mg Hydrox/Simethicone (Maalox) 30 ml PO Q4HR PRN PRN Reason: GI DISTRESS Stop: 12/08/17 22:43 Calcium/Vitamin D (Oscal W/Vitamin D) 1 tab PO BID [facility] Stop: 12/09/17 08:59 Last Admin: 10/16/17 17:26 Dose: 1 tab Cholecalciferol (Vitamin D3) 1,000 iu PO DAILY [facility] Stop: 12/09/17 08:59 Last Admin: 10/16/17 09:45 Dose: 1,000 iu Cyanocobalamin (Vitamin B12) 1,000 mcg PO DAILY [facility] Stop: 12/09/17 08:59 Last Admin: 10/16/17 09:45 Dose: 1,000 mcg Diphenhydramine HCl (Benadryl) 25 mg PO Q6HR PRN PRN Reason: Itching Stop: 12/09/17 07:44 Escitalopram Oxalate (Lexapro) 5 mg PO DAILY [facility]; Protocol Stop: 12/16/17 08:59 Lorazepam (Ativan) 0.5 mg PO Q4HR PRN; Protocol PRN Reason: Anxiety Stop: 11/08/17 22:43 Magnesium Hydroxide (Milk Of Magnesia) 30 ml PO Q72HR PRN PRN Reason: Constipation Stop: 12/09/17 07:46 Memantine (Namenda) 5 mg PO BID [facility] Stop: 12/09/17 08:59 Last Admin: 10/16/17 17:26 Dose: 5 mg Senna (Senna) 8.6 mg PO DAILY [facility] Stop: 12/09/17 08:59 Last Admin: 10/16/17 09:45 Dose: 8.6 mg Sodium Phosphate (Fleet Enema) 135 ml RC Q72HR PRN PRN Reason: IF MOM INEFFECTIVE Stop: 12/09/17 07:44 Zolpidem Tartrate (Ambien) 5 mg PO HS PRN PRN Reason: Insomnia Stop: 12/08/17 22:43 Last Admin: 10/15/17 01:38 Dose: 5 mg General: Alert, Oriented x3, No acute distress HEENT: Atraumatic, PERRLA, EOMI Neck: Supple Cardiovascular: Regular rate, Normal S1, Normal S2 Lungs: Clear to auscultation Abdomen: Bowel sounds Extremities: no Clubbing, no Cyanosis, no Edema Neurological: Normal gait Assessment/Plan - Assessment Assessment: Psychosis Arthritis Dementia (Alzheimer) osteoporosis PVD h/o left radius fracture - Plan [facility] Nutritional Asmnt/Malnutr-PDOC - Dietary Evaluation Malnutrition Findings (Please click <Entered> for more info): Nutritional Asmnt/Malnutrition Start: 10/16/17 08: 58 Text: Status: Complete Freq: Protocol: Document 10/16/17 08:58 LCHENG (Rec: 10/16/17 09:07 LCHENG [id number]) Nutritional Asmnt/Malnutrition Patient General Information Nutritional Screening Low Risk Diagnosis psychosis Pertinent Medical Hx/Surgical Hx alzheimer's anxiety, psychosis , OA Subjective Information Per EMR, PO intake 100%. Pt seen sitting up in bed and FLASH DRIER OPERATOR was assist pt with lunch. Pt was eating very well, likes the food. Current Diet Order/ Nutrition Support pureed Pertinent Medications oscal w/vit D, vit D3, Vit B12 , senna Pertinent Labs 10/09 glucose 139 Nutritional Hx/Data Height 1.65 m Height (Calculated Centimeters) 165.1 Current Weight (lbs) 54.431 kg Weight (Calculated Kilograms) 54.4 Weight (Calculated Grams) 28637.1 [place] Body Weight 125 Body Mass Index (BMI) 20.0 Weight Status Approriate GI Symptoms GI Symptoms None Last BM 10/15 Difficult in: None Skin Integrity/Comment: old scab on left elbow kristine 14 Estimated Nutritional Goals BEE in Kcals: Using Current wt Calories/Kcals/Kg 28-30 Kcals Calculated [id number] Protein: Using Current wt Protein g/k-1.2 Protein Calculated 55-66 Fluid: ml 1375-1650ml (1ml/kcal) Nutritional Problem No current Nutrition Prob Problem N/A Intervention/Recommendation Comments 1. Continue with current diet as ordered. 2. Monitor PO intake, wt, labs and skin integrity 3. F/U as low risk in 7 days, 10/23 Expected Outcomes/Goals Expected Outcomes/Goals 1. PO intake to meet at least 75% of nutritional needs. 2. Wt stability, skin to remain intact, labs to approach WNL.
[2017-10-17] MEDS: Multivitamin w/ Minerals Tab PO SCH (08:37)
[2017-10-17] MEDS: Calcium Carb/Vit D 500 mg/200 U Tab PO SCH (08:37)
[2017-10-17] MEDS ORDERED: Escitalopram Oxalate 5 mg Tab PO SCH (14:00)
--- NOTE | 2017-10-17 16:43 | Progress Notes ---
DATE: 10/17/2017 SUBJECTIVE: The patient laughing to self, odd, confused, preoccupied. The patient is taking some of her medications. No agitation. Seems to be calmer, more cooperative, seems to be doing well with treatment likely approaching her baseline. Poorly oriented, confused; however, medications were noted including dosages and frequencies. The patient is coming from [facility]. ASSESSMENT: The patient seems to be improving, calmer, more cooperative. No overt agitation, still confused, disoriented. PLAN: We will continue to monitor. Consider discharge in the next 24 hours if the patient's behaviors remain calm. JOB# [id number]
--- NOTE | 2017-10-17 18:57 | Discharge Summary ---
DATE OF DISCHARGE: 10/17/2017 JUSTIFICATION FOR HOSPITALIZATION: Agitation and aggressive behaviors. HISTORY OF PRESENT ILLNESS: A 77-year-old female brought in from [facility] agitated, combative, could not be cared for a lower level of care. The patient is AO to name only, mumbling something, difficult to understand. Not answering any questions, confused. PAST PSYCHIATRIC HISTORY: Advanced dementia. FAMILY HISTORY: Noncontributory. SOCIAL HISTORY: Coming from [facility]. MEDICATIONS: Noted. MENTAL STATUS EXAMINATION: Please see full psych eval for details. PROVISIONAL DIAGNOSIS: Dementia; dementia with behaviors; psychosis, unspecified. Under medical, please see full H and P. HOSPITAL COURSE: On initial assessment, the patient was started on medications, Lexapro, also Namenda was continued. Over the course of the hospitalization, she was calmer, more cooperative, friendly, remains confused, disoriented, but not combative. No agitation. Better impulse control. Sleeping better, eating well with prompting. CONDITION UPON DISCHARGE: Improved, allowing ADLs, good eye contact. Awake, alert. Mood not answering. Affect flat. Thought processes were confused, disoriented, AO to name only. No SI, no HI. No suicidal gestures. No overt evidence of any psychotic behaviors. No hitting behaviors. No aggressive behaviors. Insight and judgment diminished. Impulse control somewhat better. PROVISIONAL DIAGNOSES: Mood, unspecified; anxiety, unspecified; dementia with behaviors. Under medical, please see full H and P. PROGNOSIS: The patient follows up with outpatient mental health services and remains compliant with treatment. Prognosis will improve, otherwise guarded. [facility]# [id number]
== END 2017-10-17 15:00 | DRG 885 ==
LOC: ER 19:14 → GERO2 22:05
PROVIDERS: ADMIT Psychiatry & Neurology Psychiatry; ATTEND Psychiatry & Neurology Psychiatry
DX: F29 Unspecified psychosis not due to a substance or known physiological condition (principal); F02.81 Dementia in other diseases classified elsewhere, unspecified severity, with behavioral disturbance; M19.90 Unspecified osteoarthritis, unspecified site; G30.9 Alzheimer's disease, unspecified; M81.0 Age-related osteoporosis without current pathological fracture; I73.9 Peripheral vascular disease, unspecified; F41.9 Anxiety disorder, unspecified; F39 Unspecified mood [affective] disorder; Z79.899 Other long term (current) drug therapy
CPT/HCPCS: 36415-UA; 71045-TC; 80053-TC; 84443-TC; 84484-TC; 85025-TC; 86592-TC; 93005; Z7610